=== PATIENT | male | born 1970 | race Two or more races ===

== ENCOUNTER 2020-11-23 14:13 | Emergency (ER) | payer SELFPAY ==
[~2020-11-23] VITALS: Ht 188 cm; Wt 90.0 kg
[2020-11-23] MEDS ORDERED: OXYMETAZOLINE 0.05% NASAL SPRAY 30ML BOTTLE. NS ONE (16:15)
--- NOTE | 2020-11-23 16:30 | PHYS DOC ---
Past Medical History Past Medical History: No Pertinent History Past Surgical History: No Surgical History Smoking Status: Never Smoker Alcohol Use: Occasionally General Adult EDM: Chief Complaint: NOSEBLEED HPI: HPI: Patient is a 50 year old male who presents with 1 week of intermittent nosebleed. He states today he feels that it is slightly worse. He is not on any kind of blood thinners. Patient denies headache, nasal congestion, sneezing, fever, chest pain, shortness of air, nausea, vomiting, dizziness. Patient denies any other past medical history. Review of Systems: Review of Systems: Constitutional: Denies fever or chills. [] Eyes: Denies change in visual acuity. [] HENT: Denies nasal congestion or sore throat. + Intermittent nosebleed [] Respiratory: Denies cough or shortness of breath. [] Cardiovascular: Denies chest pain or edema. [] GI: Denies abdominal pain, nausea, vomiting, bloody stools or diarrhea. [] : Denies dysuria. [] Musculoskeletal: Denies back pain or joint pain. [] Integument: Denies rash. [] Neurologic: Denies headache, focal weakness or sensory changes. [] Endocrine: Denies polyuria or polydipsia. [] Lymphatic: Denies swollen glands. [] Psychiatric: Denies depression or anxiety. [] Heart Score: C/O Chest Pain: No Risk Factors: Risk Factors: DM, Current or recent (<one month) smoker, HTN, HLP, family history of CAD, obesity. Risk Scores: Score 0 - 3: 2.5% MACE over next 6 weeks - Discharge Home Score 4 - 6: 20.3% MACE over next 6 weeks - Admit for Clinical Observation Score 7 - 10: 72.7% MACE over next 6 weeks - Early Invasive Strategies Current Medications: Current Medications Medications (Trade) Dose Ordered Sig/Gregory Start Time Stop Time Status Last Admin Dose Admin Oxymetazoline HCl (Afrin) 2 spray 1X ONCE 11/23/20 16:15 11/23/20 16:16 DC 11/23/20 16:20 2 SPRAY Allergies: Allergies: Allergies Coded Allergies Type Severity Reaction Last Updated Verified No Known Drug Allergies 11/23/20 No Physical Exam: PE: Constitutional: Well developed, well nourished, no acute distress, non-toxic appearance. [] HENT: Normocephalic, atraumatic, bilateral external ears normal, oropharynx mois t, no oral exudates, nose normal. + Noses dripping some blood when he leans forward. [] Eyes: PERRLA, EOMI, conjunctiva normal, no discharge. [] Neck: Normal range of motion, no tenderness, supple, no stridor. [] Cardiovascular:Heart rate regular rhythm, no murmur [] Lungs & Thorax: Bilateral breath sounds clear to auscultation [] Abdomen: Bowel sounds normal, soft, no tenderness, no masses, no pulsatile masses. [] Skin: Warm, dry, no erythema, no rash. [] Back: No tenderness, no CVA tenderness. [] Extremities: No tenderness, no cyanosis, no clubbing, ROM intact, no edema. [] Neurologic: Alert and oriented X 3, normal motor function, normal sensory function, no focal deficits noted. [] Psychologic: Affect normal, judgement normal, mood normal. [] Current Patient Data: Vital Signs: Vital Signs Date Time Temp Pulse Resp B/P (MAP) Pulse Ox O2 Delivery O2 Flow Rate FiO2 11/23/20 15:40 98.8 85 16 181/111 (134) 97 Room Air 98.8 EKG: EKG: [] Radiology/Procedures: Radiology/Procedures: [] Course & Med Decision Making: Course & Med Decision Making Pertinent Labs and Imaging studies reviewed. (See chart for details) See HPI. Alert and oriented x4. Ambulatory with a steady gait. Speaks in full clear sentences. Patient is currently laying on the bed flat and he is not choking or coughing up any blood. When looking at the patient's nose there is no bleeding seen. I cannot tell where the bleeding is coming from because there is no bleeding. There is however scant blood up inside the nose. Patient squirted 2 puffs of Afrin up the right nare which is the nare that is been bleeding. There is now no bleeding at all. Patient's blood pressure has come down. Patient still denies any pain or dizziness. He denies any medical history. Patient will be discharged he can follow-up with an ENT doctor or a primary care doctor. [] Nader Disclaimer: Nader Disclaimer: This electronic medical record was generated, in whole or in part, using a voice recognition dictation system. Departure Departure Impression: Primary Impression: Nosebleed Disposition: HOME / SELF CARE / HOMELESS Condition: STABLE Referrals: NO PCP (PCP) Patient Instructions: Nosebleed Additional Instructions: Follow-up with a primary care doctor or an ears nose throat doctor. Your blood pressure is slightly elevated which can also make your nosebleed. Follow-up because you may need blood pressure medication. Try not to blow your nose. Scripts Oxymetazoline Hcl (AFRIN) 30 Ml [place] 30 ML NS BID for 3 Days, #1 SPRAY 2 SPRAYS IN EACH NOSTRIL TWICE A DAY FOR 5 DAYS Prov: CAIT HOPPER APRN 11/23/20 CAIT HOPPER APRN November 23, 2020 16:30
[2020-11-23 16:55] VITALS: BP 159/110
[2020-11-23] MEDS ORDERED: OXYM30SP25 NS (17:00)
== END 2020-11-23 17:00 | disposition home or self-care (01) ==
LOC: ER 14:13
DX: R04.0 Epistaxis (principal)
CPT/HCPCS: 99282